=== PATIENT | female | born 1980 | race Caucasian/White ===

== ENCOUNTER → 2017-03-27 | Day surgery (SDC) | payer OTHER ==
[~2017-03-27] MED LIST: LACTATED RINGER'S 1000 ML INJ 1,000 ML ONE; PROPOFOL 200 MG/20 ML AMP IV ONE
--- NOTE | 2017-03-27 09:09 | GIPROC ---
[facility] [address] [place], [address] EGD PROCEDURE REPORT EXAM DATE: 03/27/2017 PATIENT NAME: Yuko Chavarria MR #: [id number] BIRTHDATE: 1980 ATTENDING: Jarad Lama MD ORDER #: [id number] METAL GRADER: Juan Bui RN STATUS: outpatient INDICATIONS: The patient is a 36 yr old female here for an EGD due to Preoperative assessment PROCEDURE PERFORMED: EGD w/ biopsy MEDICATIONS: None, Per Anesthesia, None, and Per Anesthesia. TOPICAL ANESTHETIC: CONSENT: The patient understands the risks and benefits of the procedure and understands that these risks include, but are not limited to: sedation, allergic reaction, infection, perforation and/or bleeding. Alternative means of evaluation and treatment include, among others: physical exam, x-rays, and/or surgical intervention. The patient elects to proceed with this endoscopic procedure. medical equipment was checked for proper function. Hand hygiene and appropriate measures for infection prevention was taken. After the risks, benefits and alternatives of the procedure were thoroughly explained, Informed consent was verified, confirmed and timeout was successfully executed by the treatment team. The patient was anesthetized with topical anesthesia and the EG-2990i ([id number]) and EC-2990i ([id number]) endoscope was introduced through the mouth and advanced to the second portion of the duodenum. Retroflexed views revealed no abnormalities The gastroscope was then slowly withdrawn and removed. STOMACH: There was mild gastritis in the gastric antrum. Multiple biopsies were performed. The endoscopy was otherwise normal. ADVERSE EVENTS: There were no complications. IMPRESSIONS: 1. There was mild gastritis in the gastric antrum; multiple biopsies were performed 2. Normal endoscopy otherwise 3. Retroflexed views revealed no abnormalities RECOMMENDATIONS: 1. Await biopsy results. Biopsy results will not be ready for 7-10 days. If you don't hear from us in two weeks, call our office for biopsy results. 2. If biopsies negative patient is cleared for surgery 3. Follow-up: GI clinic PRN PATIENT CONDITION: stable DISPOSITION: Home REPEAT EXAM: Jarad Lama MD eSigned: Jarad Lama MD 03/27/2017 9:09 AM cc: Dalila Mercer [facility] Radha West M.D.
== END | disposition home or self-care (01) ==
LOC: ESDC 07:11
PROVIDERS: ATTEND Internal Medicine Gastroenterology
DX: K29.70 Gastritis, unspecified, without bleeding (principal)
CPT/HCPCS: 00740; 43239; 88305; 88312; J3010; J7120

== ENCOUNTER 2017-06-05 05:07 | Inpatient (IN) | payer OTHER ==
[~2017-06-05] VITALS: Ht 152.4 cm; Wt 111.4 kg
[~2017-06-05 05:07] MED LIST changes: +BUTA1CAP PO; +CETI-1 PO; +FLUT1SPR5 EACH NARE; -LACTATED RINGER'S 1000 ML INJ 1,000 ML ONE; +LISI10TA3 PO; -PROPOFOL 200 MG/20 ML AMP IV ONE
[2017-06-05] MEDS ORDERED: ONDANSETRON HCL 4 MG/2 ML VIAL IV PUSH SCH (05:30)
[2017-06-05] MEDS ORDERED: METOPROLOL TARTRATE 25 MG TAB PO PRN (05:30)
[2017-06-05] MEDS ORDERED: CHLORHEXIDINE GLUCONATE 2 % 1 PACK (2 CLOTHS) TOPICAL PRN (05:30)
[2017-06-05] MEDS ORDERED: ACETAMINOPHEN 1000 MG/100 ML 100 ML IV SCH (05:30)
[2017-06-05] MEDS ORDERED: APREPITANT 40 MG CAP PO SCH (05:30)
[2017-06-05] MEDS ORDERED: ceFAZolin 2 GM PREMIX 50 ML IV SCH (05:30)
[2017-06-05] MEDS ORDERED: SCOPOLAMINE 1.5 MG PATCH T-DERMAL SCH (05:30)
[2017-06-05] MEDS ORDERED: SODIUM CHLORID 0.9% 500 ML IV PRN (05:30)
[2017-06-05] MEDS ORDERED: LACTATED RINGER'S 1000 ML IV PRN (05:30)
[2017-06-05] MEDS ORDERED: POVIDONE IODINE 5% (ANTISEPSIS KIT) 4 APPLICATIONS EACH NARE PRN (05:30)
[2017-06-05] MEDS ORDERED: metroNIDAZOLE 500 MG INJ 100 ML IV ONE (05:50)
[2017-06-05] MEDS ORDERED: ACETAMINOPHEN 1000 MG/100 ML 0 ML IV ONE (06:32)
[2017-06-05] MEDS ORDERED: LIDOCAINE HCL 0.5% PF 50 ML VIAL ONE (06:33)
[2017-06-05] MEDS ORDERED: PROPOFOL 500 MG/50 ML INJ 0 ML ONE (06:33)
[2017-06-05] MEDS ORDERED: KETAMINE HCL 500 MG/5 ML VIAL ONE (06:33)
[2017-06-05] MEDS ORDERED: DEXMEDETOMIDINE HCL 200 MCG/2 ML VIAL ONE (06:34)
[2017-06-05] MEDS ORDERED: BUPIVACAINE/EPINEPHRINE 0.25% PF 30 ML VIAL ONE (06:40)
[2017-06-05] MEDS ORDERED: FAMOTIDINE 20 MG/2 ML VIAL ONE (06:49)
[2017-06-05] MEDS ORDERED: 1/2 NS + KCL 20 MEQ INJ 1,000 ML IV SCH (08:45)
[2017-06-05] MEDS ORDERED: MORPHINE SULFATE 30 MG/30 ML PCA IV SCH (08:45)
[2017-06-05] MEDS ORDERED: DO NOT ADM ANY ANTICOAGULANT DRUGS PRN (08:59)
[2017-06-05] MEDS ORDERED: *HYDROmorphone PF 1 MG VIAL PERIprocedural Use ONLY ONE ×2 (09:09→09:34)
[2017-06-05] MEDS ORDERED: *RESP: ALBUTEROL 2.5 MG/3 ML NEB (PRN) PERIprocedural Use ONLY NEB ONE (09:23)
[2017-06-05] MEDS ORDERED: HYDROmorphone HCL PCA 6 MG/30 ML IV ONE (09:42)
[2017-06-05] MEDS ORDERED: ONDANSETRON HCL 4 MG/2 ML VIAL IV PUSH PRN (10:00)
[2017-06-05] MEDS ORDERED: diphenhydrAMINE HCL 50 MG/ML VIAL IV PUSH PRN (10:00)
[2017-06-05] MEDS ORDERED: NALOXONE HCL 0.4 MG/ML AMP IV PUSH PRN ×2 (10:00→13:00)
[2017-06-05] MEDS ORDERED: SODIUM CHLORIDE 0.9% FLUSH 10 ML FLUSH IV FLUSH PRN (10:00)
[2017-06-05] MEDS: SODIUM CHLORIDE 0.9% FLUSH 10 ML FLUSH IV FLUSH SCH ×2 (10:00→21:14)
[2017-06-05] MEDS ORDERED: ENALAPRILAT 1.25 MG/ML VIAL IV PUSH PRN (10:00)
[2017-06-05] MEDS: METOCLOPRAMIDE HCL 10 MG/2 ML VIAL IV PUSH SCH ×3 (10:00→21:14)
[2017-06-05] MEDS: 1/2 NS + KCL 20 MEQ INJ 1,000 ML IV SCH ×2 (10:00→19:17)
[2017-06-05] MEDS ORDERED: diphenhydrAMINE HCL ELIXIR 12.5 MG/5 ML CUP PO PRN (10:00)
[2017-06-05] MEDS ORDERED: Post-op Orders (for Pharmacy) MISC OTHER ONE (11:00)
[2017-06-05] MEDS ORDERED: HYDROmorphone HCL 2 MG TAB PO PRN (11:00)
[2017-06-05 12:00] VITALS: BP 118/64; PULSE 99; RESP 16; TEMP 96.6; O2SAT 97
[2017-06-05] MEDS ORDERED: SUCCINYLCHOLINE CHLORIDE 100 MG/5 ML SYRINGE IV PUSH ONE (12:00)
[2017-06-05] MEDS ORDERED: NEOSTIGMINE 3 MG/3 ML SYR IV ONE (12:00)
[2017-06-05] MEDS ORDERED: DEXAMETHASONE SOD PHOS 4 MG/ML VIAL IV ONE (12:00)
[2017-06-05] MEDS ORDERED: LIDOCAINE HCL 1% PF 5 ML SYRINGE OTHER ONE (12:00)
[2017-06-05] MEDS ORDERED: PROPOFOL 200 MG/20 ML AMP IV ONE (12:00)
[2017-06-05] MEDS ORDERED: ePHEDrine/NS 25 MG/5 ML SYR IV ONE (12:00)
[2017-06-05] MEDS ORDERED: ROCURONIUM INJ 50 MG/5 ML SYRINGE IV PUSH ONE (12:00)
[2017-06-05] MEDS ORDERED: GLYCOPYRROLATE 0.4 MG/2 ML VIAL IV ONE (12:00)
[2017-06-05] MEDS ORDERED: KETOROLAC TROMETHAMINE 30 MG/ML (IVP) VIAL IV PUSH ONE (12:00)
[2017-06-05] MEDS ORDERED: LACTATED RINGER'S 1000 ML INJ 1,000 ML IV ONE (12:00)
[2017-06-05] MEDS ORDERED: MIDAZOLAM HCL 2 MG/2 ML VIAL IV ONE (12:00)
[2017-06-05] MEDS: PANTOPRAZOLE SOD 40 MG DELAYED RELEASE TAB PO SCH (12:15)
[2017-06-05] MEDS: ACETAMINOPHEN 1000 MG/100 ML 100 ML IV SCH ×2 (12:18→19:17)
[2017-06-05] MEDS ORDERED: HYDROmorphone HCL PCA 6 MG/30 ML IV SCH (12:45)
[2017-06-05] MEDS ORDERED: ENOXAPARIN SODIUM 40 MG/0.4 ML SYRINGE SQ SCH (13:00)
[2017-06-05] MEDS: RESP: ALBUTEROL 2.5 MG/3 ML NEB (SCH) INH ×3 (13:14→19:27)
[2017-06-05] MEDS ORDERED: PCA - TOTAL MG MORPHINE DELIVERED PER SHIFT SCH (14:00)
[2017-06-05] MEDS: PCA - TOTAL MG DILAUDID DELIVERED PER SHIFT SCH ×2 (14:00→21:15)
[2017-06-05] MEDS: metroNIDAZOLE 500 MG INJ 100 ML IV SCH (14:15)
[2017-06-05 16:00] VITALS: BP 121/77; PULSE 86; RESP 17; TEMP 96.7; O2SAT 95
[2017-06-05 20:00] VITALS: BP 114/67; PULSE 66; RESP 16; TEMP 97.6; O2SAT 98
[2017-06-06 00:35] VITALS: BP 109/70; PULSE 61; RESP 16; TEMP 96.8; O2SAT 98
[2017-06-06] MEDS: 1/2 NS + KCL 20 MEQ INJ 1,000 ML IV SCH ×2 (01:42→05:52)
[2017-06-06] MEDS: ACETAMINOPHEN 1000 MG/100 ML 100 ML IV SCH ×2 (01:42→05:57)
[2017-06-06] MEDS: RESP: ALBUTEROL 2.5 MG/3 ML NEB (SCH) INH ×2 (04:00)
[2017-06-06 04:24] VITALS: BP 114/70; PULSE 67; RESP 16; TEMP 97.2; O2SAT 96
[2017-06-06 04:25] VITALS: BP 114/70; PULSE 67; RESP 16; TEMP 97.2; O2SAT 96
[2017-06-06 05:18] LABS: AUTOMATED NEUTROPHIL # 10.2 TH/MM3 (1.8-7.7); BASOPHIL % 0.3 % (0.0-2.0); EOSINOPHIL % 0.1 % (0.0-4.0); HEMATOCRIT 35.1 % (35.0-46.0); HEMO FLAGS DIFF FINAL; LYMPH % 17.4 % (9.0-44.0); LYMPHOCYTE # 2.4 TH/MM3 (1.0-4.8); MEAN CELL VOLUME 81.5 FL (80.0-100.0); MEAN CORPUSCULAR HEMOGLOBIN 26.9 PG (27.0-34.0); MEAN CORPUSCULAR HGB CONC 32.9 % (32.0-36.0); MONO % 6.9 % (0.0-8.0); NEUT % 75.3 % (16.0-70.0); PLATELET COUNT 266 TH/MM3 (150-450); RED CELL DISTRIBUTION WIDTH 13.8 % (11.6-17.2); WHITE BLOOD COUNT 13.5 TH/MM3 (4.0-11.0)
[2017-06-06 05:47] LABS: BICARBONATE 22.1 MEQ/L (21.0-32.0); POTASSIUM 4.1 MEQ/L (3.5-5.1)
[2017-06-06] MEDS: METOCLOPRAMIDE HCL 10 MG/2 ML VIAL IV PUSH SCH (05:51)
[2017-06-06] MEDS: metroNIDAZOLE 500 MG INJ 100 ML IV SCH (05:52)
[2017-06-06] MEDS: PCA - TOTAL MG DILAUDID DELIVERED PER SHIFT SCH (05:53)
--- NOTE | 2017-06-06 07:43 | HHI.PR ---
Subjective Subjective Notes pt comfortable no cp no sob asif liquids Objective Vitals/I&O Vital Signs Date Time Temp Pulse Resp B/P (MAP) Pulse Ox O2 Delivery O2 Flow Rate FiO2 06/06/17 05:53 22 06/06/17 04:25 97.2 67 114/70 (85) 96 06/05/17 10:00 Nasal Cannula 3 Labs Laboratory Tests Test 06/06/17 03:56 White Blood Count 13.5 Red Blood Count 4.30 Hemoglobin 11.6 Hematocrit 35.1 Mean Corpuscular Volume 81.5 Mean Corpuscular Hemoglobin 26.9 Mean Corpuscular Hemoglobin Concent 32.9 Red Cell Distribution Width 13.8 Platelet Count 266 Mean Platelet Volume 9.0 Neutrophils (%) (Auto) 75.3 Lymphocytes (%) (Auto) 17.4 Monocytes (%) (Auto) 6.9 Eosinophils (%) (Auto) 0.1 Basophils (%) (Auto) 0.3 Neutrophils # (Auto) 10.2 Lymphocytes # (Auto) 2.4 Monocytes # (Auto) 0.9 Eosinophils # (Auto) 0.0 Basophils # (Auto) 0.0 CBC Comment DIFF FINAL Differential Comment Blood Urea Nitrogen 7 Creatinine 0.63 Random Glucose 95 Calcium Level 8.2 Magnesium Level 2.0 Sodium Level 133 Potassium Level 4.1 Chloride Level 103 Carbon Dioxide Level 22.1 Anion Gap 8 Estimat Glomerular Filtration Rate 108 Abdomen: Post-op tenderness Extremities: Perfused Wound Wound : Wound Location: Abdomen Appearance: Clean & Dry A/P Assessment and Plan s/p lap sleeve pod #1 doing well d/c home Med West MD Jun 06, 2017 07:43
[2017-06-06 08:00] VITALS: BP 117/79; PULSE 75; RESP 18; TEMP 96.1; O2SAT 100
[2017-06-06] MEDS: PANTOPRAZOLE SOD 40 MG DELAYED RELEASE TAB PO SCH (08:23)
[2017-06-06] MEDS: SODIUM CHLORIDE 0.9% FLUSH 10 ML FLUSH IV FLUSH SCH (08:23)
[2017-06-06] MEDS ORDERED: LISINOPRIL 10 MG TAB PO SCH (09:00)
[2017-06-06] MEDS ORDERED: METOCLOPRAMIDE HCL 10 MG/2 ML VIAL IV PUSH PRN (10:00)
--- NOTE | 2017-06-10 13:34 | MP ---
cc: GUY WEST DATE OF SURGERY: 06/05/2017 DATE OF : 1980 PREOPERATIVE DIAGNOSIS Morbid obesity with BMI of 48, complicated by essential hypertension. POSTOPERATIVE DIAGNOSIS Morbid obesity with BMI of 48, complicated by essential hypertension. PROCEDURE Laparoscopic vertical sleeve gastrectomy over a 36 [place] ViSiGi bougie. SURGEON Guy West. [employer] CONSULTANT SURGEON Yoel Schofield. ANESTHESIA General endotracheal. FINDINGS Fatty liver. SPECIMENS None. COMPLICATIONS None. OPERATION The patient was brought to the operating room and placed on the operating table in the supine position. Bilateral sequential inflation devices were placed on the lower extremities. General anesthesia was instituted. Antibiotics were initiated. The abdomen was prepped and draped sterilely. A point 15 cm distal to the xiphoid in the midline was anesthetized with 0.25% Marcaine with epinephrine. A skin incision was made. A 5 mm OptiView port was placed under direct vision and a pneumoperitoneum created. Under direct vision three 5 mm left upper quadrant, one 15 mm right upper quadrant and one 5 mm right upper quadrant ports were placed. Prior to placement of all ports the skin and peritoneum were anesthetized with 0.25% Marcaine with epinephrine. The patient was placed in reverse Trendelenburg position left side up. A Lizett-Flex retractor was placed. The left lobe of the liver was retracted. The vasculature along the greater curvature of the stomach was using a Harmonic scalpel starting a distance 5 cm proximal to the pylorus and carried towards the angle of His. The angle of His was taken down bluntly. Posterior ligamentous attachments were sharply . A 36-[place] ViSiGi bougie was placed at the start of the case and placed on suction. Division of the stomach started 5 cm proximal to the pylorus and carried towards the angle of His to completely excise approximately 80% of the stomach. This was performed using an [place] Flex stapler at the pylorus. The first firing was with a black load, followed by a green load and four gold loads. All staple loads were reinforced with SeamGuard. A distance of 2 cm was left from the angle incisura and the staple line and a distance of 1 cm left from the GE junction and the staple line. The pylorus was then occluded, methylene blue tinged saline was instilled. There was no evidence of extravasation. The gastrocolic ligament was then sutured to the posterior leaflet of the SeamGuard using 2-0 Vicryl suture in a running manner. Bleeding points were controlled with Evicel. The excised stomach was removed from the peritoneal cavity through the 15 mm port site in an Endopouch. The fascia at the 15 mm port site was approximated with 0 Vicryl suture. The CO2 was then released. All ports were removed. All skin incisions were closed with 4-0 Monocryl. The abdominal wall was cleaned and a sterile dressing placed. The patient was awakened and taken to the recovery room. MD FLORIAN Quevedo/BT /12:13 PM /1:26 PM
== END 2017-06-06 09:33 | disposition home or self-care (01) | DRG 621 ==
LOC: HSDI 05:07 → N07A 10:18
PROVIDERS: ADMIT Surgery; ATTEND Surgery
PROC: 0DB64Z3 Excision of Stomach, Percutaneous Endoscopic Approach, Vertical (ICD-10-PCS; principal; 2017-06-05 07:17)
DX: E66.01 Morbid (severe) obesity due to excess calories (principal); K76.0 Fatty (change of) liver, not elsewhere classified; I10 Essential (primary) hypertension; Z68.42 Body mass index [BMI] 45.0-49.9, adult
CPT/HCPCS: 80048; 83735; 85025; 94150; 94640; 94664; J0131; J0330; J0690; J1100; J1170; J1650; J1885; J2250; J2405; J2710; J2765; J3010; J7120; J7613; J8501